=== PATIENT | male | born 1995 | race Caucasian/White ===

== ENCOUNTER 2018-06-22 11:13 | Emergency (ER) | payer BC, OTHER ==
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
--- NOTE | 2018-06-22 12:16 | RAD REPORT ---
EXAM DESCRIPTION: [place] (2 Views)06/22/2018 12:09 pm CLINICAL HISTORY: Chest pain COMPARISON: 2017 FINDINGS: The lungs appear clear of acute infiltrate. The heart is normal size IMPRESSION: No acute abnormalities displayed
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
[2018-06-22 13:01] VITALS: TEMP 97.1; O2SAT 98
[2018-06-22 13:02] VITALS: BP 128/74
== END 2018-06-22 12:42 | disposition home or self-care (01) ==
LOC: ER 11:13
DX: S16.1XXA Strain of muscle, fascia and tendon at neck level, initial encounter (principal); V49.50XA Passenger injured in collision with unspecified motor vehicles in traffic accident, initial encounter; F41.9 Anxiety disorder, unspecified
CPT/HCPCS: 70450; 71046; 72125; 99284